=== PATIENT | female | born 1985 | race African-American/Black ===

== ENCOUNTER 2017-03-18 11:49 | Emergency (ER) | payer OTHER ==
[~2017-03-18] VITALS: Ht 165.1 cm; Wt 96.8 kg
[2017-03-18] MEDS ORDERED: ULTRAM50 MG PO (12:59)
[2017-03-18] MEDS ORDERED: KEFLEX500 MG PO (12:59)
[2017-03-18] MEDS ORDERED: BACTRIM,SEPT1 TABLET PO (12:59)
[2017-03-18 13:15] LABS: ADD MIUA? YES; BILIRUBIN NEGATIVE; BLOOD MODERATE; COLOR YELLOW ((YELLOW)); GLUCOSE (STRIP) NEGATIVE; INTERNAL CONTROL VALID? YES; KETONES NEGATIVE; LEUKOCYTES NEGATIVE; NITRITE NEGATIVE; PROTEIN (STRIP) NEGATIVE; SPECIFIC GRAVITY 1.024 (1.000-1.030); UROBILINOGEN 0.2 MG/DL (0.2-1.0)
[2017-03-18 13:21] LABS: BACTERIA 1+ /HPF; EPITHELIAL CELLS 1+ /HPF; MUCUS 3+ /LPF; WHITE BLOOD CELLS 0-5 /HPF (0-5)
[2017-03-18 13:39] VITALS: BP 119/72
== END 2017-03-18 13:40 | disposition home or self-care (01) ==
LOC: EME 11:49
PROVIDERS: Physician Assistant
DX: N76.4 Abscess of vulva (principal); R30.0 Dysuria; F17.200 Nicotine dependence, unspecified, uncomplicated
CPT/HCPCS: 81003; 84703; 99281; 99284

== ENCOUNTER 2017-06-09 19:05 | Emergency (ER) | payer OTHER ==
[~2017-06-09] VITALS: Ht 165.1 cm; Wt 93.8 kg
[~2017-06-09 19:05] MED LIST: BACTRIM,SEPT1 TABLET PO; KEFLEX500 MG PO; ULTRAM50 MG PO
[2017-06-09 20:02] LABS: HEMATOCRIT 38.2 % (36.0-46.0); HEMOGLOBIN 12.8 G/DL (11.9-15.5); MCH 29.8 PG (29.0-34.0); MCHC 33.5 G/DL (30.0-36.0); PLATELET COUNT 291 K/uL (156-360); RBC DIS.WIDTH-CV 13.3 % (11.8-14.6); RBC DIS.WIDTH-SD 43.7 % (39-53); RED BLOOD COUNT 4.29 M/uL (3.80-5.20); WHITE BLOOD COUNT 7.9 K/uL (4.1-10.2)
[2017-06-09 20:22] LABS: TROP-I INTERPRETATION NEGATIVE; TROPONIN-I < 0.01 ng/mL (0.0-0.30)
[2017-06-09 20:28] LABS: CHLORIDE 107 mEq/L (99-109); POTASSIUM 3.8 mEq/L (3.7-5.4); SODIUM 141 mEq/L (136-147)
[2017-06-09 20:30] LABS: GLUCOSE 88 mg/dL (70-99)
[2017-06-09 20:34] LABS: CREATININE 0.8 mg/dL (0.6-1.3); GFR ESTIMATE (CALCULATED) > 59 mL/min/
[2017-06-09 20:35] LABS: UREA NITROGEN (BUN) 8 mg/dL (9-23)
[2017-06-09 22:57] LABS: TROP-I INTERPRETATION NEGATIVE; TROPONIN-I < 0.01 ng/mL (0.0-0.30)
[2017-06-10] MEDS ORDERED: FLEXERIL10 MG PO (00:13)
[2017-06-10 00:25] VITALS: BP 121/76
== END 2017-06-10 00:26 | disposition home or self-care (01) ==
LOC: EME 19:05
PROVIDERS: Physician Assistant
DX: R07.89 Other chest pain (principal); M62.838 Other muscle spasm; F17.200 Nicotine dependence, unspecified, uncomplicated
CPT/HCPCS: 71046; 80048; 84484; 85027; 93005; 99281; 99283

== ENCOUNTER 2017-07-05 04:43 | Inpatient (IN) | payer OTHER ==
[~2017-07-05] VITALS: Ht 165.1 cm; Wt 93.2 kg
[~2017-07-05 04:43] MED LIST changes: +FLEXERIL10 MG PO
[2017-07-05 05:35] LABS: ALBUMIN 4.2 g/dL (3.2-4.8); HEMATOCRIT 37.6 % (36.0-46.0); HEMOGLOBIN 12.7 G/DL (11.9-15.5); MCH 29.2 PG (29.0-34.0); MCHC 33.8 G/DL (30.0-36.0); MCV 86.4 FL (83-99); PLATELET COUNT 321 K/uL (156-360); RBC DIS.WIDTH-CV 13.6 % (11.8-14.6); RBC DIS.WIDTH-SD 42.5 % (39-53); RED BLOOD COUNT 4.35 M/uL (3.80-5.20); WHITE BLOOD COUNT 13.6 K/uL (4.1-10.2)
[2017-07-05 05:36] LABS: CHLORIDE 104 mEq/L (99-109); POTASSIUM 3.3 mEq/L (3.7-5.4); SODIUM 139 mEq/L (136-147)
[2017-07-05 05:38] LABS: GLUCOSE 113 mg/dL (70-99); TOTAL PROTEIN 6.9 g/dL (6.4-8.3)
[2017-07-05 05:40] LABS: TOTAL BILIRUBIN 1.2 mg/dL (0.0-1.0)
[2017-07-05 05:41] LABS: SERUM ETHYL ALCOHOL < 10 mg/dL
[2017-07-05 05:42] LABS: ALKALINE PHOSPHATASE 67 IU/L (3-129); CREATININE 0.8 mg/dL (0.6-1.3); GFR ESTIMATE (CALCULATED) > 59 mL/min/
[2017-07-05 05:43] LABS: AST (GOT) 13 IU/L (2-34)
[2017-07-05 05:44] LABS: UREA NITROGEN (BUN) 6 mg/dL (9-23)
[2017-07-05 05:45] LABS: ALT (GPT) 12 IU/L (3-49); SALICYLATE < 5.0 MG/DL (15-30)
[2017-07-05 05:46] LABS: ACETAMINOPHEN (TYLENOL) < 10 mcg/mL (10-30); LIPASE 26 U/L (1.0-51.0)
[2017-07-05 05:52] LABS: QUANTITATIVE HCG < 4.0 MIU/ML
[2017-07-05 07:31] LABS: TROP-I INTERPRETATION NEGATIVE; TROPONIN-I < 0.01 ng/mL (0.0-0.30)
[2017-07-05 08:51] LABS: COCAINE PRESUMPTIVE POSITIVE (150 ng/mL); PHENCYCLIDINE NEGATIVE (25 ng/mL); THC CANNABINOIDS PRESUMPTIVE POSITIVE (50 ng/mL)
[2017-07-05 08:52] LABS: AMPHETAMINE NEGATIVE (500 ng/mL); BARBITURATES NEGATIVE (200 ng/mL); BENZODIAZEPINES NEGATIVE (150 ng/mL); BUPRENORPHINE NEGATIVE (10 ng/mL); METHADONE NEGATIVE (200 ng/mL); METHAMPHETAMINE NEGATIVE (500 ng/mL); OPIATES (MORPHINE) NEGATIVE (100 ng/mL); OXYCODONE NEGATIVE (100 ng/mL); PROPOXYPHENE NEGATIVE (300 ng/mL); TRICYCLIC ANTIDEPRESSANTS NEGATIVE (300 ng/mL)
[2017-07-05 10:39] VITALS: BP 120/85
[2017-07-05 10:42] VITALS: BP 120/85
[2017-07-05 15:35] VITALS: BP 124/56
[2017-07-06 07:21] VITALS: BP 103/56
[2017-07-06 15:46] VITALS: BP 92/57
[2017-07-06 20:51] VITALS: BP 117/54
[2017-07-07 08:01] VITALS: BP 97/61
[2017-07-07] MEDS ORDERED: ESCITALOPRAM OX10 MG PO (09:49)
== END 2017-07-07 13:11 | disposition home or self-care (01) | DRG 882 ==
LOC: EME → EDBD 04:43 → EME 04:43 → 1WEST 08:20 → EDOF 08:20 → ENRESERV 10:01 → 1WEST 10:01
PROVIDERS: Emergency Medicine
DX: F43.23 Adjustment disorder with mixed anxiety and depressed mood (principal); T50.992A Poisoning by other drugs, medicaments and biological substances, intentional self-harm, initial encounter; T40.5X2A Poisoning by cocaine, intentional self-harm, initial encounter; D72.829 Elevated white blood cell count, unspecified; F14.20 Cocaine dependence, uncomplicated; F12.20 Cannabis dependence, uncomplicated; F17.210 Nicotine dependence, cigarettes, uncomplicated; Z91.5 Personal history of self-harm; Z91.410 Personal history of adult physical and sexual abuse; Z59.0 Homelessness; Z56.0 Unemployment, unspecified
CPT/HCPCS: 80053; 83690; 84484; 84702; 84999; 85027; 90837; 93005; 97150 GO; 97165 GO; 99281; 99284; G0480; Q0177